=== PATIENT | female | born 1965 | race Caucasian/White ===

== ENCOUNTER 2016-11-21 20:01 | Emergency (ER) | payer OTHER ==
[~2016-11-21] VITALS: Ht 165.1 cm; Wt 48.5 kg
--- NOTE | ~2016-11-21 | CR170 ---
[facility] A Service of [facility] RADIOLOGY TEXT RESULTS PATIENT: REMINGTON REINOSO LOCATION: [facility] : 67 UNIT #: [id number] AGE: [address]: Vinay Queen MD SEX: F ORDER DR: [id number] [facility] [address] [place], [place] [address] [id number] MR#: [id number] Acc #: [id number] NAME: REMINGTON REINOSO : 1965 SEX: F STUDY DATE/TIME: 11/21/2016 20:40 UNIT: [facility] ROOM: STUDY DESCRIPTION: CR Knee 2 Views Rt Attending Physician: Vinay Queen M.D. Ordering Physician: Vinay Queen M.D. Primary Care Physician: Wilver Bright Aprn MEDICAL IMAGING REPORT This report is preliminary unless electronic signature is present EXAMINATION Two views, right knee. DATE 11/21/2016 HISTORY Right knee pain and swelling for 5 days. No known trauma. COMPARISON Right knee radiographs, 01/16/2016. FINDINGS Large suprapatellar joint effusion is present. No acute fracture or joint dislocation. No interarticular loose bodies are identified. No acute osseous abnormalities. No significant osteoarthritic change. IMPRESSION 1. Findings suggestive of large suprapatellar joint effusion. Underlying soft tissue mass cannot be excluded. These findings appear similar to the 01/16/2016 exam. 2. No osseous abnormality. Dictated by... Joy Duff M.D. THIS IS AN ELECTRONICALLY VERIFIED REPORT Joy Duff M.D. at 11/22/2016 1:55 PM [facility] TD: 11/22/2016 10:59 JOB #: [id number] [facility] A Service of [facility] RADIOLOGY TEXT RESULTS PATIENT: REMINGTON REINOSO LOCATION: [facility] : 67 UNIT #: [id number] AGE: [address]: Vinay Queen MD SEX: F ORDER DR: MEDICAL IMAGING REPORT Page 1 of 1 COPY
[~2016-11-21 20:01] MED LIST: AMBIEN PO; BACLOFEN; BACLOFEN10 MG PO; BACLOFEN20 M1 PO; CELEBREX; CELECOXIB200 MG PO; CLINDAMYCIN; CYMBALTA PO; DICLOFENAC PO; FLEXERIL10 MG PO; FLUOXETINE HCL40 MG PO; HCTZ PO; HYDROCORTISONE15 G3 TP; HYDROCORTISONE30 G2; HYDROXYZINE HCL25 M1 PO; KEFLEX500 MG PO; KENALOG IN ORABA5 GM TOP; MEDROL DOSEPAK4 MG PO; MEDROL4 MG/DOSE- PO; MOBIC PO; NEURONTIN100 MG PO; PAXIL PO; PRILOSEC PO; PROZAC; PROZAC PO; PROZAC40 M1 PO; TRAZODONE; VICODIN 5/1 TAB 5/50 PO; VICODIN 5/500 T1 TAB PO; VISTARIL; VOLTAREN75 MG PO; WELLBUTRIN100 MG PO
[2016-11-21 22:21] LABS: BF CRYSTAL EXAM NO CRYSTALS SEEN; BODY FLUID SOURCE SYNOVIAL
[2016-11-21 22:22] LABS: BF TOTAL NUCLEATED CELL COUNT 12968 CMM (0-100); BODY FLUID APPEARANCE CLOUDY; BODY FLUID RBC <10000 CMM
== END 2016-11-21 22:56 | disposition home or self-care (01) ==
LOC: CED 20:01
PROVIDERS: Emergency Medicine
DX: M25.461 Effusion, right knee (principal); K21.9 Gastro-esophageal reflux disease without esophagitis; F41.9 Anxiety disorder, unspecified; F32.9 Major depressive disorder, single episode, unspecified; Z90.710 Acquired absence of both cervix and uterus; Z98.890 Other specified postprocedural states; Z88.0 Allergy status to penicillin; Z88.8 Allergy status to other drugs, medicaments and biological substances; F17.200 Nicotine dependence, unspecified, uncomplicated
CPT/HCPCS: 20610; 29505; 73560; 82945; 87070; 87205; 89051; 89060; 99283

== ENCOUNTER → 2016-12-01 | Outpatient (CLI) | payer OTHER ==
--- NOTE | ~2016-12-01 | MR104 ---
[facility] A Service of [facility] RADIOLOGY TEXT RESULTS PATIENT: REMINGTON REINOSO LOCATION: [facility] : 67 UNIT #: [id number] AGE: [address]: Kailey Matos SEX: F ORDER DR: [id number] [address] [address] [id number] O MR#: [id number] Acc #: [id number] NAME: REMINGTON REINOSO : 1965 SEX: F STUDY DATE/TIME: 12/01/2016 17:32 UNIT: [facility] ROOM: STUDY DESCRIPTION: MR Knee Wo Contrast Rt Attending Physician: Kailey Matos P.A.-C. Referring Physician: Kailey Matos P.A.-C. Ordering Physician: Kailey Matos P.A.-C. Primary Care Physician: Wilver Bright Aprn [facility]ENTER REPORT This report is preliminary unless electronic signature is present. EXAM MRI of the right knee, 12/01/2016 COMPARISON Right knee radiographs 01/16/2016 and 11/21/2016 HISTORY Order states right knee effusion. History sheet states no known injury and no knee surgery. Recurrent knee pain swelling fluid since January 2016. Most recent symptoms for 3 weeks. Knee aspirated. No knee surgery. FINDINGS There is a [id number]-avxcysld complex signal joint effusion with subtle small intermediate T2 foci within the suprapatellar bursa. There is no popliteal cyst. Patellofemoral alignment and articular cartilage are normal. Quadriceps and patellar tendons are intact. Cruciate ligaments are normal. Menisci, collateral ligaments, and popliteus tendon are intact. Articular cartilage of the medial and lateral compartments is normal. There is no marrow lesion, fracture, or large loose body. There is some subtle edema in the posterior aspect of the vastus medialis muscle/vastus medialis obliquus muscle which is nonspecific and could reflect mild muscle strain, myositis, etc. In the absence of internal derangement, the joint effusion with subtle intermediate signal foci is concerning for synovitis and/or primary synovial pathology. Appearance is not typical for pigmented villonodular STS. [facility] A Service of [facility] RADIOLOGY TEXT RESULTS PATIENT: REMINGTON REINOSO [id number] 67 UNIT #: [id number] AGE: [address]: Kailey Matos SEX: F ORDER DR: synovitis. Mild early synovial chondromatosis is possible. Primary inflammatory arthropathy including rheumatoid arthritis should be considered clinically. Consider rheumatologic evaluation. No osseous erosions are noted. There is no popliteal lymphadenopathy identified. IMPRESSION 1. The predominant abnormality is a complex signal moderate joint effusion without internal derangement otherwise noted. Given apparent recurrent effusions by radiography of 01/26/2016 and 11/21/2016 in the absence of reported trauma, primary synovial disorder is favored. An inflammatory arthropathy is the primary consideration. Additional considerations include early or mild synovial chondromatosis. The appearance is not typical for pigmented villonodular synovitis. There are no osseous erosions. Consider rheumatologic evaluation as clinically warranted. 2. Cruciate ligaments, menisci, and articular cartilage are normal. 3. Mild edema in the vastus medialis/vastus medialis obliquus muscle is nonspecific as above. 4. The appearance is not typical for septic arthritis with lack of periarticular inflammation. Low grade or indolent infection is considered doubtful. Dictated by... Ebony Cid M.D. THIS IS AN ELECTRONICALLY VERIFIED REPORT Ebony Cid M.D. at 12/02/2016 1:50 PM [facility]/vic TD: 12/02/2016 12:19 JOB #: [id number] [facility] REPORT Page 1 of 1
== END | disposition home or self-care (01) ==
LOC: SMRI 17:08
DX: M25.461 Effusion, right knee (principal)
CPT/HCPCS: 73721